=== PATIENT | female | born 1990 | race African-American/Black ===

== ENCOUNTER 2024-08-23 22:23 | Emergency (ER) | payer SELFPAY ==
[~2024-08-23] VITALS: Ht 162.6 cm; Wt 88.0 kg
[2024-08-23 23:10] VITALS: BP 112/68; PULSE 91; RESP 16; TEMP 98.8; O2SAT 98
== END 2024-08-24 01:51 | disposition left against medical advice (07) ==
LOC: ER 22:23
DX: M79.10 Myalgia, unspecified site (principal); Z53.21 Procedure and treatment not carried out due to patient leaving prior to being seen by health care provider